=== PATIENT | female | born 1955 | race Caucasian/White ===

== ENCOUNTER → 2016-10-03 | Outpatient (CLI) | payer OTHER ==
[~2016-10-03] MED LIST: ASCO10004 PO; VALS1TAB30 PO; VITAMIN B-12; VITAMIN D3
[2016-10-03 09:38] LABS: ASPARTATE AMINO TRANSFERASE 10 U/L (15-37); BLOOD UREA NITROGEN 13 mg/dL (7-18)
== END | disposition home or self-care (01) ==
LOC: STAR 08:31
PROVIDERS: ATTEND Surgery
DX: Z01.818 Encounter for other preprocedural examination (principal); K80.20 Calculus of gallbladder without cholecystitis without obstruction
CPT/HCPCS: 36415; 80053; 93005

== ENCOUNTER 2016-10-08 06:56 | Day surgery (SDC) | payer OTHER ==
[~2016-10-08] VITALS: Ht 161.3 cm; Wt 58.6 kg
[2016-10-08] MEDS ORDERED: LACTATED RINGERS 1,000 ML IV SCH ×2 (08:40→10:37)
[2016-10-08 08:42] VITALS: BP 157/79
[2016-10-08] MEDS ORDERED: FENTANYL PF 250 MCG/5ML ONE (09:09)
[2016-10-08] MEDS ORDERED: MIDAZOLAM 1 MG/ML, 2ML ONE (09:09)
[2016-10-08] MEDS ORDERED: BUPIVACAINE/PF-EPI 0.5% 1:200K ONE (09:19)
[2016-10-08] MEDS ORDERED: BUPIVACAINE/PF-EPI 0.5% 1:200K INFIL ONE (09:50)
[2016-10-08] MEDS ORDERED: CLINDAMYCIN 150 MG/ML, 6ML ONE (09:57)
[2016-10-08] MEDS ORDERED: SUCCINYLCHOLINE 20 MG/ML, 10ML ONE (09:58)
[2016-10-08] MEDS ORDERED: ROCURONIUM 10 MG/ML ONE (09:58)
[2016-10-08] MEDS ORDERED: ONDANSETRON 2MG/ML, 2ML ONE ×2 (09:58→10:48)
[2016-10-08] MEDS ORDERED: KETOROLAC 30 MG/1 ML ONE (09:58)
[2016-10-08] MEDS ORDERED: PROPOFOL 10 MG/ML, 20ML ONE (09:58)
[2016-10-08] MEDS ORDERED: SUGAMMADEX 200 MG/2 ML IVPush ONE (10:26)
[2016-10-08] MEDS ORDERED: MIDAZOLAM 1 MG/ML, 2ML IV PRN (10:30)
[2016-10-08] MEDS ORDERED: EPHEDRINE 50 MG/ML, 1ML IVPush PRN (10:30)
[2016-10-08] MEDS ORDERED: ACETAMINOPHEN 325 MG TABLET PO PRN (10:30)
[2016-10-08] MEDS ORDERED: HYDROmorphone 1 MG/ML, 1ML IV PRN (10:30)
[2016-10-08] MEDS ORDERED: PROMETHAZINE 25 MG/ML, 1ML IV PRN (10:30)
[2016-10-08] MEDS ORDERED: MEPERIDINE/PF 25MG/0.5ML IVPush PRN (10:30)
[2016-10-08] MEDS ORDERED: OXYcodone 5 MG/5 ML ORAL.SOL UDC PO PRN ×2 (10:30→11:00)
[2016-10-08] MEDS ORDERED: hydrALAzine 20 MG/ML, 1ML IV PRN (10:30)
[2016-10-08] MEDS ORDERED: ONDANSETRON 2MG/ML, 2ML IVPush PRN ×2 (10:30→11:00)
[2016-10-08] MEDS ORDERED: LABETALOL 5MG/ML, 20ML IV PRN (10:30)
[2016-10-08] MEDS ORDERED: OXYcodone 5 MG/5 ML ORAL.SOL UDC ONE (10:47)
[2016-10-08] MEDS ORDERED: ACETAMINOPHEN 325 MG TABLET ONE (10:47)
[2016-10-08] MEDS ORDERED: ACETAMINOPHEN 650 MG/20.3 ML UDC ONE (10:48)
[2016-10-08] MEDS ORDERED: FENTANYL PF 100 MCG/2ML ONE (10:55)
[2016-10-08] MEDS: FENTANYL PF 100 MCG/2ML IV PRN ×2 (11:00→11:25)
[2016-10-08] MEDS ORDERED: DIPHENHYDRAMINE 50 MG/ML, 1ML IVPush PRN (11:00)
== END 2016-10-08 13:55 ==
LOC: OUT 06:56
PROVIDERS: ATTEND Surgery
DX: K80.10 Calculus of gallbladder with chronic cholecystitis without obstruction (principal); I10 Essential (primary) hypertension; F17.200 Nicotine dependence, unspecified, uncomplicated; Z88.1 Allergy status to other antibiotic agents; Z88.0 Allergy status to penicillin; Z88.8 Allergy status to other drugs, medicaments and biological substances; Z72.89 Other problems related to lifestyle
CPT/HCPCS: 47562; 88304; J0330; J1885; J2250; J2405; J2704; J3010; J7120